=== PATIENT | male | born 1955 | race Caucasian/White ===

== ENCOUNTER 2020-11-23 16:32 | Emergency (ER) | payer MEDICAID ==
[~2020-11-23] VITALS: Ht 180.3 cm; Wt 75.0 kg
[2020-11-23 18:04] LABS: ALBUMIN 1.9 g/dL (3.4-5.0); ANION GAP 5 mmol/L (5-15); CHLORIDE 110 mmol/L (98-107); CREATININE 0.75 mg/dL (0.7-1.3); MEAN CORPUSCULAR HEMOGLOBIN 28.2 pg (27.5-34.5); MEAN CORPUSCULAR HGB CONC 32.8 g/dL (33.2-36.2); MEAN PLATELET VOLUME 7.1 fL (7.4-10.4); PLATELET COUNT 160 x10^3/uL (130-400); RED BLOOD COUNT 3.64 x10^6/uL (4.38-5.82); RED CELL DISTRIBUTION WIDTH 19.5 % (9.4-14.8)
[2020-11-23] MEDS ORDERED: NEOSPORIN OINT. PKT 1 PACKET ONE ×2 (18:45→18:56)
[2020-11-23 18:50] VITALS: BP 143/74
[2020-11-23 18:57] LABS: BASOS#(MANUAL) 0.05 x10^3/uL (0-0.1); BASOS% (MANUAL) 1 % (0-1); LYMPH#(MANUAL) 0.53 x10^3/uL (1-3.4); LYMPHS% (MANUAL) 10 % (22-44); MONOS#(MANUAL) 0.69 x10^3/uL (0.3-2.7); MONOS% (MANUAL) 13 % (2-9); MYELOCYTES# (MANUAL) 0.05 x10^3/uL (0-0); MYELOCYTES% (MANUAL) 1 % (0-0); SEG#(MANUAL) 3.98 x10^3/uL (1.8-6.8); SEGS% (MANUAL) 75 % (42-75)
[2020-11-23 18:59] LABS: <PLATELET ESTIMATE> ADEQUATE; <PLT MORPHOLOGY> NORMAL PLT MORPH; ANISOCYTOSIS 1+; OVALOCYTES 1+
--- NOTE | 2020-11-23 19:05 | NUR ---
TASK RN: WOUNDS DRESSED ON LOWER EXTREMITY. URINAL EMPTIED. PT NAD RESTING ON GURNEY, APPEARS COMFORTABLE, DENIES ADDITIONAL QUESTIONS OR NEEDS AT THIS TIME.
== END 2020-11-23 19:40 | disposition home or self-care (01) ==
LOC: ED 18:06
DX: S80.811A Abrasion, right lower leg, initial encounter (principal); L03.115 Cellulitis of right lower limb; F17.210 Nicotine dependence, cigarettes, uncomplicated; Z59.0 Homelessness; Z85.828 Personal history of other malignant neoplasm of skin; Y08.89XA Assault by other specified means, initial encounter; Y93.89 Activity, other specified; Y92.410 Unspecified street and highway as the place of occurrence of the external cause; Y99.8 Other external cause status
CPT/HCPCS: 36415; 80048; 82040; 85025; 99284; 99406